=== PATIENT | female | born 1960 | race Caucasian/White ===

== ENCOUNTER 2022-07-05 13:06 | Emergency (ER) | payer MEDICAID ==
[~2022-07-05] VITALS: Ht 157.5 cm; Wt 73.0 kg
[2022-07-05 13:23] VITALS: BP 150/90
[2022-07-05 14:32] LABS: BASOPHILS % (AUTO) 0.3 % (0.0-2.0); EOSINOPHILS # (AUTO) 0.6 K/uL (0-0.4); EOSINOPHILS % (AUTO) 5.3 % (0.0-4.0); HEMATOCRIT 35.6 % (36-48); LYMPHOCYTES # (AUTO) 1.7 K/uL (2.5-16.5); LYMPHOCYTES % (AUTO) 15.1 % (20.5-51.1); MEAN CORPUSCULAR HEMOGLOBIN 29 pg (27-31); MEAN CORPUSCULAR HGB CONC 34 g/dL (33-37); MEAN CORPUSCULAR VOLUME 85.5 fL (80-94); MONOCYTES # (AUTO) 0.5 K/uL (0.8-1.0); MONOCYTES % (AUTO) 4.2 % (1.7-9.3); NEUTROPHILS # (AUTO) 8.5 K/uL (1.8-7.7); NEUTROPHILS % (AUTO) 75.1 % (42.2-75.2); PLATELET COUNT (AUTO) 334 K/uL (140-450); RED BLOOD CELL COUNT(AUTO) 4.17 MIL/uL (4.20-5.40); RED CELL DISTRIBUTION WIDTH 13.3 % (11.6-13.7); WHITE BLOOD COUNT (AUTO) 11.2 K/uL (4.8-10.8)
[2022-07-05] MEDS ORDERED: DICYCLOMINE HCL LIQUID 10 MG/5 ML UDC ONE (14:49)
[2022-07-05] MEDS ORDERED: ALUMINUM HYD/MAG/SIMETHICONE 30 ML UDC ONE (14:49)
[2022-07-05] MEDS: DICYCLOMINE HCL LIQUID 20 MG, ALUMINUM HYD/MAG/SIMETHICONE 30 ML, LIDOCAINE VISCOUS 2% ... PO ONE ×3 (14:58)
[2022-07-05 15:04] LABS: ALBUMIN 4.8 g/dL (3.4-5.0); ANION GAP 14.4 (8-16); ASPARTATE AMINOTRANSFERASE 10 U/L (15-37); CARBON DIOXIDE 26.7 mmol/L (21-32); CHLORIDE 101 mmol/L (98-107); CREATININE 1.1 mg/dL (0.6-1.3); GFR ARICAN-AMERICAN 65 mL/min (>90); GLUCOSE 263 mg/dL (74-106); LIPASE 693 U/L (73-393); POTASSIUM 4.1 mmol/L (3.5-5.1); SODIUM SERUM 138 mmol/L (136-145); TOTAL BILIRUBIN 0.5 mg/dL (0.0-1.0); UREA NITROGEN, BLOOD 24 mg/dL (7-18)
[2022-07-05 15:38] VITALS: BP 150/90
--- NOTE | 2022-07-05 15:38 | NUR ---
Patient discharged with v/s stable. Written and verbal after care instructions given and explained. Patient verbalized understanding. Ambulatory with steady gait. All questions addressed prior to discharge. Advised to follow up with PMD.
== END 2022-07-05 15:38 | disposition home or self-care (01) ==
LOC: MED 13:06
DX: K85.90 Acute pancreatitis without necrosis or infection, unspecified (principal); E11.9 Type 2 diabetes mellitus without complications; I10 Essential (primary) hypertension; J45.909 Unspecified asthma, uncomplicated; Z90.49 Acquired absence of other specified parts of digestive tract
CPT/HCPCS: 36415; 71045; 80053; 83690; 84484; 85025; 93005; 99285

== ENCOUNTER 2022-12-18 21:24 | Emergency (ER) | payer MEDICAID ==
[~2022-12-18] VITALS: Ht 157.5 cm; Wt 70.8 kg
[~2022-12-18 21:24] MED LIST: ACET-10509 PO; ACET-8905 PO; HYDR25CA10 PO; IBUP-2213 PO; MELA1TAB32 PO; ONDA-188 PO; ONDA8TAB87 PO
[2022-12-18 21:56] VITALS: BP 130/80; PULSE 79; RESP 16; TEMP 97.7; O2SAT 97
--- NOTE | 2022-12-18 22:00 | NUR ---
TO LOBBY A/W BED AMBULATORY
[2022-12-18 22:32] LABS: BASOPHILS # (AUTO) 0.1 K/uL (0.00-0.22); BASOPHILS % (AUTO) 0.6 % (0.0-2.0); EOSINOPHILS # (AUTO) 0.8 K/uL (0-0.4); EOSINOPHILS % (AUTO) 7.4 % (0.0-4.0); HEMATOCRIT 34.8 % (36-48); HEMOGLOBIN 11.5 g/dL (12.0-16.0); LYMPHOCYTES # (AUTO) 3.2 K/uL (2.5-16.5); LYMPHOCYTES % (AUTO) 30.3 % (20.5-51.1); MEAN CORPUSCULAR HEMOGLOBIN 29 pg (27-31); MEAN CORPUSCULAR HGB CONC 33 g/dL (33-37); MEAN CORPUSCULAR VOLUME 87.4 fL (80-94); MONOCYTES # (AUTO) 0.6 K/uL (0.8-1.0); MONOCYTES % (AUTO) 5.6 % (1.7-9.3); NEUTROPHILS # (AUTO) 5.9 K/uL (1.8-7.7); NEUTROPHILS % (AUTO) 56.1 % (42.2-75.2); PLATELET COUNT (AUTO) 307 K/uL (140-450); RED BLOOD CELL COUNT(AUTO) 3.98 MIL/uL (4.20-5.40); RED CELL DISTRIBUTION WIDTH 13.3 % (11.6-13.7); WHITE BLOOD COUNT (AUTO) 10.5 K/uL (4.8-10.8)
[2022-12-18 22:45] LABS: APPEARANCE,URINE CLEAR (CLEAR); BILIRUBIN,URINE NEGATIVE (NEGATIVE); BLOOD, URINE TRACE-I (NEGATIVE); COLOR,URINE YELLOW (YELLOW); LEUKOCYTE ESTERASE ,URINE TRACE (NEGATIVE); NITRITE, URINE NEGATIVE (NEGATIVE); UGLUCOSE NEGATIVE (NEGATIVE)
--- NOTE | 2022-12-18 22:46 | NUR ---
URINE SAMPLE TAKEN TO LAB FOR ANALYSIS
[2022-12-18 22:55] LABS: RBC,URINE 0-5 /HPF (0-5)
[2022-12-18 23:03] LABS: ALBUMIN 4.1 g/dL (3.4-5.0); ANION GAP 16.9 (8-16); CARBON DIOXIDE 24.4 mmol/L (21-32); POTASSIUM 4.3 mmol/L (3.5-5.1); TOTAL BILIRUBIN 0.2 mg/dL (0.0-1.0)
[2022-12-18] MEDS ORDERED: NACL 0.9% 1,000 ML IV ONE (23:15)
[2022-12-18] MEDS ORDERED: cefTRIAXone 1,000 MG VIAL ONE (23:24)
[2022-12-18] MEDS ORDERED: DICYCLOMINE HCL LIQUID 20 MG, ALUMINUM HYD/MAG/SIMETHICONE 30 ML, LIDOCAINE VISCOUS 2% ... PO ONE ×3 (23:25)
[2022-12-18] MEDS ORDERED: ONDANSETRON 4 MG/2 ML VIAL IVP ONE (23:25)
[2022-12-19] MEDS ORDERED: CEPH-588 PO (00:59)
[2022-12-19] MEDS ORDERED: ONDA-188 SL (00:59)
[2022-12-19] MEDS ORDERED: FAMO-90 PO (00:59)
[2022-12-19 02:48] VITALS: BP 130/80; PULSE 79; RESP 16; TEMP 97.7; O2SAT 97
--- NOTE | 2022-12-19 02:49 | NUR ---
Patient discharged with v/s stable. Written and verbal after care instructions given and explained. New rx keflex, pepcid, zofran ODT. Patient verbalized understanding. Ambulatory with steady gait. All questions addressed prior to discharge. Advised to follow up with PMD.
== END 2022-12-19 02:49 | disposition home or self-care (01) ==
LOC: MED 21:24
DX: N39.0 Urinary tract infection, site not specified (principal); N28.9 Disorder of kidney and ureter, unspecified; E86.0 Dehydration; E11.9 Type 2 diabetes mellitus without complications; I10 Essential (primary) hypertension; J45.909 Unspecified asthma, uncomplicated; Z79.4 Long term (current) use of insulin; Z79.899 Other long term (current) drug therapy; Z90.49 Acquired absence of other specified parts of digestive tract
CPT/HCPCS: 36415; 80053; 81001; 83690; 85025; 87086; 96365; 96375; 99284; J0696; J2405; J7030

== ENCOUNTER 2023-05-02 16:13 | Emergency (ER) | payer MEDICAID ==
[~2023-05-02] VITALS: Ht 157.5 cm; Wt 71.7 kg
[~2023-05-02 16:13] MED LIST changes: +CEPH-588 PO; +FAMO-90 PO; +ONDA-188 SL
[2023-05-02 16:41] VITALS: BP 144/77; PULSE 76; RESP 15; TEMP 96.3; O2SAT 98
[2023-05-02] MEDS ORDERED: IBUPROFEN 400 MG TAB PO ONE (16:55)
== END 2023-05-02 18:46 | disposition home or self-care (01) ==
LOC: MED 16:13
DX: S93.401A Sprain of unspecified ligament of right ankle, initial encounter (principal); J45.909 Unspecified asthma, uncomplicated; E11.9 Type 2 diabetes mellitus without complications; I10 Essential (primary) hypertension; Z79.899 Other long term (current) drug therapy; Z79.2 Long term (current) use of antibiotics; Z79.1 Long term (current) use of non-steroidal anti-inflammatories (NSAID); E78.5 Hyperlipidemia, unspecified; M19.90 Unspecified osteoarthritis, unspecified site; W22.8XXA Striking against or struck by other objects, initial encounter; Y92.89 Other specified places as the place of occurrence of the external cause; Y93.89 Activity, other specified; Y99.8 Other external cause status
CPT/HCPCS: 73610; 99283

== ENCOUNTER 2023-05-05 14:36 | Emergency (ER) | payer MEDICAID ==
[~2023-05-05] VITALS: Ht 157.5 cm; Wt 72.1 kg
[2023-05-05 15:09] VITALS: BP 181/81; PULSE 65; RESP 18; TEMP 99.2; O2SAT 97
[2023-05-05] MEDS ORDERED: HYDROcodone/APAP 5/325 MG 1 TAB TAB PO ONE (15:45)
[2023-05-05] MEDS ORDERED: GABA100C PO (16:40)
[2023-05-05 17:03] VITALS: BP 148/79; PULSE 68; RESP 18; TEMP 98.2
[2023-05-05 18:05] VITALS: O2SAT 99
== END 2023-05-05 17:03 | disposition home or self-care (01) ==
LOC: MED 14:36
DX: S93.491A Sprain of other ligament of right ankle, initial encounter (principal); Z79.899 Other long term (current) drug therapy; X58.XXXA Exposure to other specified factors, initial encounter; Y93.89 Activity, other specified; Y92.89 Other specified places as the place of occurrence of the external cause; Y99.8 Other external cause status
CPT/HCPCS: 73610; 99283; Q0092

== ENCOUNTER 2024-03-20 16:08 | Emergency (ER) | payer MEDICAID ==
[~2024-03-20] VITALS: Ht 157.5 cm; Wt 70.3 kg
[~2024-03-20 16:08] MED LIST changes: -ACET-10509 PO; +ACET500T99 PO
[2024-03-20 16:15] VITALS: BP 162/69; PULSE 73; RESP 16; TEMP 97.9; O2SAT 98
[2024-03-20] MEDS: KETOROLAC 30 MG/ML VIAL IM ONE (16:56)
[2024-03-20 17:07] LABS: BASOPHILS # (AUTO) 0.1 K/uL (0.00-0.22); BASOPHILS % (AUTO) 0.5 % (0.0-2.0); EOSINOPHILS % (AUTO) 9.7 % (0.0-4.0); HEMATOCRIT 33.9 % (36-48); LYMPHOCYTES # (AUTO) 1.8 K/uL (2.5-16.5); LYMPHOCYTES % (AUTO) 17.8 % (20.5-51.1); MEAN CORPUSCULAR HEMOGLOBIN 28 pg (27-31); MEAN CORPUSCULAR HGB CONC 32 g/dL (33-37); MEAN CORPUSCULAR VOLUME 86.9 fL (80-94); MONOCYTES # (AUTO) 0.5 K/uL (0.8-1.0); MONOCYTES % (AUTO) 5.1 % (1.7-9.3); NEUTROPHILS # (AUTO) 6.8 K/uL (1.8-7.7); NEUTROPHILS % (AUTO) 66.9 % (42.2-75.2); PLATELET COUNT (AUTO) 336 K/uL (140-450); RED CELL DISTRIBUTION WIDTH 14.7 % (11.6-13.7); WHITE BLOOD COUNT (AUTO) 10.2 K/uL (4.8-10.8)
[2024-03-20 17:18] LABS: CALCIUM 10.2 mg/dL (8.5-10.1); CARBON DIOXIDE 23.7 mmol/L (21-32); POTASSIUM 4.7 mmol/L (3.5-5.1)
[2024-03-20 17:22] LABS: BILIRUBIN,DIRECT 0.1 mg/dL (0.0-0.3); TOTAL BILIRUBIN 0.2 mg/dL (0.0-1.0); TOTAL PROTEIN, SERUM 7.8 g/dL (6.4-8.2)
[2024-03-20] MEDS ORDERED: BEN10 PO (17:36)
[2024-03-20] MEDS ORDERED: LOPE1TAB14 PO (17:36)
[2024-03-20] MEDS ORDERED: NITR100C7 PO (20:41)
[2024-03-20] MEDS ORDERED: PHEN-1877 PO (20:41)
== END 2024-03-20 17:46 | disposition home or self-care (01) ==
LOC: MED 16:08
DX: R19.7 Diarrhea, unspecified (principal); R10.32 Left lower quadrant pain; J45.909 Unspecified asthma, uncomplicated; E11.9 Type 2 diabetes mellitus without complications; I10 Essential (primary) hypertension; E78.5 Hyperlipidemia, unspecified; Z79.899 Other long term (current) drug therapy
CPT/HCPCS: 36415; 80048; 80076; 83690; 85025; 96372; 99283; J1885

== ENCOUNTER 2024-03-20 18:31 | Emergency (ER) | payer MEDICAID ==
[~2024-03-20] VITALS: Ht 157.5 cm; Wt 70.3 kg
[~2024-03-20 18:31] MED LIST changes: +BEN10 PO; +LOPE1TAB14 PO
[2024-03-20 18:34] VITALS: BP 173/82; PULSE 65; RESP 16; TEMP 98; O2SAT 99
[2024-03-20 19:38] LABS: BILIRUBIN,URINE NEGATIVE (NEGATIVE); BLOOD, URINE NEGATIVE (NEGATIVE); COLOR,URINE YELLOW (YELLOW); LEUKOCYTE ESTERASE ,URINE 1+ (NEGATIVE); NITRITE, URINE NEGATIVE (NEGATIVE); PROTEIN,URINE TRACE (NEGATIVE); UGLUCOSE TRACE (NEGATIVE); UROBILINOGEN,URINE 0.2 EU/dL (0.2 - 1)
[2024-03-20 19:42] LABS: APPEARANCE,URINE SLIGHTLY HAZY (CLEAR)
[2024-03-20 19:58] LABS: BACTERIA,URINE 2+ /HPF (None Seen); MUCUS,URINE 3+ /LPF (None Seen); RBC,URINE 0-5 /HPF (0-5); SQUAMOUS EPITHELIAL CELL,UR 4-10 (MOD) /LPF (0-3 (FEW))
[2024-03-20] MEDS ORDERED: PHEN-1877 PO (20:41)
[2024-03-20] MEDS ORDERED: NITR100C7 PO (20:41)
[2024-03-20 20:53] VITALS: BP 152/82; PULSE 65; RESP 16; TEMP 98
[2024-03-20 20:54] VITALS: O2SAT 99
== END 2024-03-20 20:53 | disposition home or self-care (01) ==
LOC: MED 18:31
DX: N39.0 Urinary tract infection, site not specified (principal); J45.909 Unspecified asthma, uncomplicated; E11.9 Type 2 diabetes mellitus without complications; I10 Essential (primary) hypertension; M19.90 Unspecified osteoarthritis, unspecified site; E78.5 Hyperlipidemia, unspecified; F32.9 Major depressive disorder, single episode, unspecified; Z79.899 Other long term (current) drug therapy
CPT/HCPCS: 81001; 87086; 99283